=== PATIENT | female | born 1980 | race Two or more races ===

== ENCOUNTER 2024-10-16 15:27 | Emergency (ER) | payer MEDICAID, SELFPAY ==
--- NOTE | ~2024-10-16 | XR_ITS ---
CLINICAL HISTORY: ?FB to 3rd finger from fish paulette 3 view right hand Comparison: None Findings: Bones intact. No dislocations. No significant loss of joint space or osteophytes. 2 mm linear foreign body within the soft tissues overlying the distal right 3rd phalanx. IMPRESSION: 2 mm linear foreign body within the soft tissues overlying the distal right 3rd phalanx. This document has been electronically signed by: Terrence Parish MD on 10/16/2024 16:26:07
--- NOTE | 2024-10-16 15:33 | ED.UPPEXIN ---
HPI - Extremity Injury (Upper) General Chief Complaint: General Medical Stated Complaint: right wrist Time Seen by Provider: 10/16/24 17:02 Related Data Previous Rx's ?Medication ?Instructions ?Recorded cefuroxime axetil 500 mg tablet 500 mg PO BID #20 tabs 10/16/24 doxycycline monohydrate 100 mg 100 mg PO BID #20 caps 10/16/24 capsule Allergies Allergy/AdvReac Type Severity Reaction Status Date / Time No Known Allergies Allergy Verified 10/16/24 15:36 Review of Systems Review of Systems: Yes all other systems are reviewed and are negative [facility] Social History Social History Smoked in Last 30 Days: No Use of substances other than those prescribed or required for medical reasons: No Advance Directives: No Advance Directives Information Provided: No Do you have a plan to hurt others: No Plan Patient : No Physical Exam Vital Signs: Vital Signs: Last Vital Signs Temp 98.9 F 10/16/24 18:03 Pulse 70 10/16/24 18:03 Resp 18 10/16/24 18:03 BP 140/80 H 10/16/24 18:03 Pulse Ox 97 10/16/24 18:03 O2 Del Method Room Air 10/16/24 18:03 BMI result Body Mass Index 34.8 Const: Other: The patient is a 44-year-old woman who was awake and alert. She looks somewhat tired but not toxic. HEENT: Other: Face is symmetrical, mucous membranes moist Eyes: General: appearance normal, both eyes and all related structures Neck: Neck: Yes normal visual inspection, Yes full ROM and Yes no lymphadenopathy Resp: Effort & Inspection: normal respiratory effort Auscultation: clear to auscultation bilaterally Cardio: Other: I heard no murmur Palpation: normal PMI Rate: regular rate Rhythm: regular rhythm and abnormal rhythm Skin: Other: There is a small area of skin abnormality on the radial side of the distal right middle finger which I suspect was the entrance wound of the fish hook. There is no erythema associated with this however. There is no swelling to the skin of the pad of the finger. The remainder of the skin of the middle finger in the rest of the hand and the wrist is all unremarkable without erythema or swelling. Neuro: Other: The patient is awake and alert with a normal mental status. Normal sensorimotor function of the right hand. Extrem: Other: The patient indicates that she has pain in the region of the right wrist mostly on the radial side of the right wrist and at the base of the thumb. I can put the wrist through an excellent range of motion without difficulty. I can also manipulate the thumb easily without causing any pain. There is a sign of what I suspect was the entrance wound of a fishhook injury on the radial side of the distal right middle finger. This is on the side of the pad of the finger. The pad itself does not seem swollen or tender. There is no tenderness at the site of the wound. There was no purulence. No erythema. There was no tenderness along the course of the flexor tendon. There was no pain with passive extension of the finger. She is able to curl the finger well. Course Course Course Narrative: Art Estelita ACCOUNT DEVELOPMENT REPRESENTATIVE 10/16 1529 This is a rapid medical exam. Deferred additional HPI, ROS, PE to primary provider. 44 yo female with no known medical history, right hand dominant here with pain/redness/swelling to right hand 3rd finger x 2 weeks, getting progressively worsened. Of note, she was fishing 2 weeks ago and thinks a paulette from the fish went into her finger. She does have a small wound on the distal finger with surrounding erythema. Will check x-rays VSS Medications Administered Discontinued Medications Generic Name Dose Route Start Last Admin Trade Name Mirna PRN Reason Stop Dose Admin Cefuroxime Axetil 500 mg 10/16/24 17:38 10/16/24 17:56 Cefuroxime Axetil 500 Mg Tablet PO 10/16/24 17:39 500 mg ONCE ONE Administration Diphtheria/Tetanus/Acell Pertussis 0.5 ml 10/16/24 17:36 10/16/24 17:57 Diphth,Pertus(Acell),Tet Adult 0.5 Ml Syringe IM 10/16/24 17:37 0.5 ml .ONCE ONE Administration Doxycycline Monohydrate 100 mg 10/16/24 17:36 10/16/24 17:56 Doxycycline Monohydrate 100 Mg Capsule PO 10/16/24 17:37 100 mg ONCE ONE Administration Medical Decision Making Medical Decision Making MDM Narrative: The patient is a 44-year-old woman who sustained an injury to the distal right middle finger 2 weeks ago, a fishhook injury. She thought that she had successfully removed the fishhook. She now has pain in the region of the base of the hand and the right wrist. An x-ray of the hand shows what may be a very small foreign body near the entrance wound at the pad of the finger. She is afebrile and does not tachycardic. I do not find any evidence of any acute surgical infectious process in the finger, the hand, or the wrist. Her physical exam is quite benign. I can not really explain why she is having pain in the hand and wrist. It is also surprising that she does not have much pain at the pad of the finger where she has the foreign body. I reviewed the case with the provider on-call for Orthopedics. The patient will be placed on antibiotics and follow up in the office for outpatient management. The patient was given a tetanus shot. The patient was started on cefuroxime 500 mg b.i.d. and doxycycline 100 mg b.i.d.. She should return to the emergency room if you feel significantly worse. Discharge Plan Discharge Clinical Impression: Foreign body of finger of right hand Patient Disposition: Home, Self-Care Additional Instructions: You have a small piece of what I believe is a remnant of the fish hook in the tip of your right middle finger. You has been started on a course of antibiotics. Please take these antibiotics 2 times a day as prescribed. Please call the orthopedic office on Friday to make an appointment for arranging a possible procedure to remove the foreign body in your fingertip. Otherwise rest and take it easy. If you feel significantly worse return to the Emergency Room. Prescriptions: New doxycycline monohydrate 100 mg capsule 100 mg PO BID Qty: 20 0RF cefuroxime axetil 500 mg tablet 500 mg PO BID Qty: 20 0RF Referrals: [facility] [Provider Group] (Right middle finger foreign body, fish hook remnant) Interventions: ED Discharge Assessment Last Done: 10/16/24 18:03 Discharge Date/Time: 10/16/24 18:04 Print Language: Bruneian
[2024-10-16 15:34] VITALS: BP 133/71; PULSE 68; RESP 18; TEMP 37.2; O2SAT 98; BMI 34.8
--- OUTSIDE RECORDS SUMMARY | 2024-10-16 17:01 | XMS_ITS | Clinical Summary ---
Author Organization [facility] Address [address] [place] [address] Care Team Providers Care Batter Scaler Name Role Phone Maryuri Victoria NAIN Primary Care Provider [phone] Source Comments PLEASE NOTE, if this patient is a minor, it may be UNLAWFUL to discuss sensitive information that is contained in these records (such as FAMILY PLANNING, MENTAL HEALTH or SUBSTANCE ABUSE) with the minor patient's parent or other person without the patient's specific authorization.[facility] Allergies No known active allergies Medications lancets (FREESTYLE LANCETS) 28 gaugeIndication s:Type 2 diabetes mellitus without complication, without long-term current use of insulin ([facility]) Check FBS once daily E11.8 100 Each 11 2 Active alcohol swabs (ALCOHOL PREP PADS)Indication s:Type 2 diabetes mellitus without complication, without long-term current use of insulin ([facility]) Check FBS BID and inject Trulicity weekly. 100 Each 11 2 Active blood sugar diagnostic (FREESTYLE LITE STRIPS) stripsIndicatio ns:Type 2 diabetes mellitus without complication, without long-term current use of insulin ([facility]) CHECK FASTING BLOOD SUGAR ONCE DAILY 100 Each 3 4 Active cholecalciferol (VITAMIN D-3) 50 mcg (2,000 unit) capsuleIndicati ons:Vitamin D deficiency Take 1 Capsule by mouth once daily 90 Capsule 3 4 Active tirzepatide (MOUNJARO) 2.5 mg/0.5 mL pnijIndications :Type 2 diabetes mellitus without complication, without long-term current use of insulin ([facility]) Inject 2.5 mg into the skin once a week 2 mL 5 Active metFORMIN (GLUCOPHAGE) 1,000 mg tabletIndicatio ns:Type 2 diabetes mellitus without complication, without long-term current use of insulin ([facility]) TAKE 1 TABLET BY MOUTH TWICE A DAY WITH A MEAL 180 Tablet 1 5 Active simvastatin (ZOCOR) 10 mg tabletIndicatio ns:Type 2 diabetes mellitus without complication, without long-term current use of insulin ([facility]) TAKE 1 TABLET BY MOUTH EVERYDAY AT BEDTIME 90 Tablet 1 5 Active tirzepatide (MOUNJARO) 5 mg/0.5 mL pnijIndications :Type 2 diabetes mellitus without complication, without long-term current use of insulin ([facility]) Inject 5 mg into the skin once a week 6 mL 1 5 Active famotidine (PEPCID) 20 mg tabletIndicatio ns:Gastroesopha geal reflux disease without esophagitis Take 1 Tablet by mouth once daily as needed for heartburn 90 Tablet 5 Active empagliflozin (JARDIANCE) 10 mg tabIndications: Type 2 diabetes mellitus without complication, without long-term current use of insulin ([facility]) Take 1 Tablet by mouth once daily 30 Tablet 2 5 Active empagliflozin (JARDIANCE) 10 mg tabIndications: Type 2 diabetes mellitus without complication, without long-term current use of insulin ([facility]) Take 1 Tablet by mouth every morning 90 Tablet 1 5 10/02/19 25 Discontinu ed(Cancell ed) Hospital, Clinic, or Other Facility Administered Medication Ordered Dose Route Frequency Start Date End Date Status Nexplanon 68 mg implant (etonogestreL)Indications :Encounter for removal and reinsertion of etonogestrel implant 68 mg sdrm EVERY 3 YEARS 03/15/2020 A ctive Active Problems Problem Noted Date Diagnosed Date Complex renal cyst 06/17/2023 Overview (06/17/2023): Noted on liver u/s. H/O mammogram 08/13/2021 Overview (09/29/2024): 09/27/24 Mammogram: BI-RADS CATEGORY 1 - NEGATIVE 05/23/23 Mammo BIRADS 13/02/21 Mammo BIRADS 2 Breakthrough bleeding on Nexplanon 04/18/2021 H/O complete eye exam 09/13/2017 Overview (09/16/2024): Eye exam 08/27/17 at [facility]. No DR. Eye exam 09/01/18 at [facility]. No DR. 06/06/20 Eye exam at [facility]. No DR 06/07/21 Eye exam at [facility]. No DR. 06/10/22 Eye Exam at [facility]. No DR. 06/16/23 Eye Exam at [facility]. No DR> 09/15/24 Eye & Lasik: Negligible cataracts in both eyes but no signs of retinopathy. RTC in 1 year GERD (gastroesophageal reflux disease) 6 Low back pain 09/20/2014 Acne 07/30/2013 Type 2 diabetes mellitus without complication ([facility]) 09/11/2011 Overview (03/14/2020): 09/10/2011 A1C =7.6% The 10-year ASCVD risk score (Maverick CARLENE Jr., et al., 2013) is: 0.6% Hepatic steatosis 09/10/2011 Erythrocytosis 09/10/2011 Overview (12/10/2012): 09/10/2011 RBC = 5.6 10/21/2012 RBC = 5.2 H/O tubal ligation (unsuccessful) 09/09/2011 Overview (12/10/2012): 2008 unsuccessful positive [address] 11/15/2010 Overview (10/02/2020): Inserted 03/15/20 Vitamin D deficiency 02/18/2008 Overview (12/10/2012): = 20 02/18/08 = 16 09/10/11 Class 2 severe obesity due t o excess calories with serious comorbidity and body mass index (BMI) of 36.0 to 36.9 in adult ([facility]) Overview (12/10/2012): BMI = 36.9 09/09/2011 Resolved Problems Problem Noted Date Diagnosed Date Resolved Date Dizziness 05/17/2019 10/02/2020 Viral wart on right thumb 09/09/2011 Encounters Date Type Department Care Team Description 09/03/2024 1:40 PM EDT Office Visit [address] [phone] Maryuri Victoria NP Type 2 diabetes mellitus without complication, without long-term current use of insulin ([facility]) (Primary Dx); Gastroesophageal reflux disease without esophagitis 09/02/2024 Results Follow-Up [address] [phone] Maryuri Victoria NP 08/30/2024 1:40 PM EDT Office Visit [address] [phone] Maryuri Victoria NP Routine adult health maintenance (Primary Dx); Encounter for screening mammogram for malignant neoplasm of breast; Type 2 diabetes mellitus without complication, without long-term current use of insulin ([facility]); Class 2 severe obesity due to excess calories with serious comorbidity and body mass index (BMI) of 36.0 to 36.9 in adult ([facility]); Gastroesophageal reflux disease without esophagitis; Nexplanon in place; Midline low back pain without sciatica, unspecified chronicity; Vitamin D deficiency; Hepatic steatosis; H/O complete eye exam; H/O mammogram; Complex renal cyst; Elevated red blood cell count from Last 3 Months Immunizations Immunization Administration Dates Next Due Flu, Preservative Free 05/12/2023,2020,02/21/2020,05/17,03/03/2018,02/20/2016,05/16/2015 Hep A, adult 03/18/2008 Hep B, Adult/Adol (ENERGIX/RECOMBIVAX) 8,11/04/2017,05/04/2007 INFLUENZA, SEASONAL, INJECTABLE 05/11/2013,04/17,03/18/2008 Influenza (FLUBLOK),recombinant,injectable,prese rvative Free 06/04/2024 MMR (MMR II/Priorix) 04/17/2012,05/04/2007 MODERNA COVID-19 VACCINE BIV ALENT, BLUE CAP, 6M+ 07/20/2022 Moderna COVID-19 (Spikevax), Mrna, Lnp-s, Pf, 50 Mcg/0.5 Ml, 12yr+ 06/04/2024 Moderna COVID-19 Vaccine, re d cap blue label, 12+ Primary Series 09/16/2020,08/19/2020 PFIZER COVID VACCINE, PURPLE CAP, 12+ 04/18/2021 PNEUMOCOCCAL CONJUGATE PCV 2 0 (Prevnar) 05/12/2023 PNEUMOCOCCAL POLYSACCHARIDE PPV23 (Pneumovax 23) 03/03/2018 PPD 01/16/2008 TDAP 01/19/2018,11/04/2017 Td(adult),2 Lf tetanus toxoid,preservative free 02/18/2008,05/04/2007 Family History Medical History Relation Name Comments No Known Problems Brother 1 No Known Problems Brother 2 No Known Problems Brother 3 No Known Problems Daughter 1 No Known Problems Daughter 2 Other (See Comments) Father Torture d before Asthma Mother Cancer Paternal Grandfather Lung ca ncer No Known Problems Sister 1 No Known Problems Sister 2 No Known Problems Sister 3 No Known Problems Son 1 No Known Problems Son 2 No Known Problems Son 3 Colon Cancer Neg Diabetes Neg Relation Name Status Comments Brother 1 Alive Brother 2 Alive Brother 3 Alive Daughter 1 Alive Daughter 2 Alive Father Mother Alive Paternal Grandfather Sister 1 Alive Sister 2 Alive Sister 3 Alive Son 1 Alive Son 2 Alive Son 3 Alive Social History Tobacco Use Types Packs/Day Years Used Date Smoking Tobacco: Never Smokeless Tobacco: Never Tobacco Cessation:Counseling Given: Not Answered Alcohol Use Standard Drinks/Week Comments No 0 (1 standard drink = 0.6 oz pur e alcohol) Social Connections Answer Date Recorded Connectedness 0 08/04/2020 Financial Resource Strain Answer Date R ecorded Financial Resource Strain 0 2020 Stress Answer Date Recorded Stress 0 08/04/2020 Physical Activity Answer Date Recorded Physical Activity 0 08/04/2020 Food Insecurity Answer Date Recorded Food 0 08/04/2020 Transportation Needs Answer Date Record ed Transportation 0 08/04/2020 Housing Stability Answer Date Recorded Housing 0 08/04/2020 Safety and Environment Answer Date Abebe rded Safety 1 06/04/2024 Utilities Answer Date Recorded Utilities 0 08/04/2020 Employment Answer Date Recorded Stress 0 08/04/2020 Comments No Sex and Gender Information Value Date Recorded Sex Assigned at Female 10/29/2017 7:23 AM PDT Legal Sex Female 11:36 AM PDT Gender Identity Female 10/29/2017 7:23 AM PDT Sexual Orientation Straight 11/04/2017 7: 10 AM PDT Last Filed Vital Signs Vital Sign Reading Time Taken Comments Blood Pressure 120/82 09/03/2024 1:34 PM EDT Pulse 90 09/03/2024 1:34 PM EDT Temperature 37 ??C (98.6 ??F) 09/03/2024 1:34 PM EDT Respiratory Rate 16 09/03/2024 1:34 PM EDT Oxygen Saturation 99% 09/03/2024 1:34 PM EDT Inhaled Oxygen Concentration - - Weight 89.4 kg (197 lb 3.2 oz) 09/03/2024 1:34 P M EDT Height 157.5 cm (5' 2 ) 09/03/2024 1:34 PM EDT Body Mass Index 36.07 09/03/2024 1:34 PM EDT Plan of Treatment Health Maintenance Due Date Last Done Comments Anxiety Screening 1980 HPV Screening 1980 Dental Prophy 12/01/2022 05/31/2022 CT Colonography 2023 FIT/gFOBT 2023 Fecal DNA 2023 Flexible Sigmoidoscopy 2023 Dental BW 05/15/2023 05/13/2022 Dental Examination 05/15/2023 05/13/2022 Dental Perio Charting 05/15/2023 05/13/2022 Pap Smear 10/03/2023 10/02/2020, 05/02, 11/20/2011 Diabetes HbA1c 09/02/2024 06/04/2024, 08/0 07/2023, 05/12/2023, Additional history exists Urine Albumin Creatinine Ratio Screening 01/01/2025 01/02/2024, 05/12/2023, 07/16/2021, Additional history exists LARC-Nexplanon implant 03/15/2025 03/15/2020 Postp oned from 03/15/2023 (Not appropriate at this time) Relationship Safety Screening/Counseling 06/04/2025 06/04/2024, 05/12/2023, 10/17/2021, Additional history exists Annual Preventive Care Visit 08/30/2025 08/30/2024, 05/12/2023, 11/04/2017, Additional history exists Lipid Screening 08/30/2025 08/30/2024, 07/2023, 05/12/2023, Additional history exists Serum Creatinine 08/30/2025 08/30/2024, 07/2023, 05/12/2023, Additional history exists Tobacco Screening 08/30/2025 08/30/2024 Diabetes Foot Exam 09/03/2025 09/03/2024, 0 09/03/2024, 08/30/2024, Additional history exists Hypertension Screening (#1) 09/03/2025 Retinopathy Screening 09/15/2025 09/15/2024 , 06/21/2024, 06/16/2023, Additional history exists Breast Cancer Screening (Mammogram) 09/25/2025 09/25/2024, 05/23/2023, 01/03/2022, Additional history exists Cervical Cancer Screening 10/02/2025 Pap + HPV 10/02/2025 10/02/2020 Colonoscopy 01/19/2027 01/20/2024 Colorectal Cancer Screening 01/19/2027 Dental FMX/Pano 05/15/2027 05/13/2022 Imm-DTaP/Tdap/Td (3 - Td or Tdap) 01/20/2028 01/19/2018, 11/04/2017, 02/18/2008, Additional history exists Imm-Hepatitis B Discontinued 03/03/2018, 060 09/2017, 05/04/2007 Imm-Pneumococcal Completed 05/12/2023, 03/03/2018 Alcohol and Drug Screen Completed 06/04/19, 01/02/2024, 05/12/2023, Additional history exists Depression Annual Screen Completed 06/04/2024, 06/0 09/2017 [id number] Completed 06/04/2024, 07/03, 04/18/2021, Additional history exists Imm-Influenza Completed 06/04/2024, 05/02, 04/18/2021, Additional history exists HIV Screening Completed 08/30/2024, 05/17/2019 Hepatitis C Screening Completed 08/30/2024, 019 Cervical Ablation/Cold-Knife Conization Discontinued Cervical Cryotherapy Discontinued Colposcopy Discontinued Endometrial Biopsy Discontinued Excision/Leep Discontinued HPV Genotyping Discontinued Vaginal Pap Discontinued Vulvoscopy Discontinued Goals Goal Patient Goal Type Associated Problems Recent Progress Patient-Stated? Author To saty more physically active. Case Management No Franklyn Hubbard, RN Note: What: Start stretch and restore physical activity class. How Much: minimum of 30 minutes When: Mondays How Often: Once a week [facility] With whom: Daughter Start Date:05/31/2019 Follow-Up Date: 06/25/[address] to Follow-Up: in person Procedures Procedure Name Priority Date/Time Associated Diagnosis Comments REFERRAL FOR MAMMOGRAM Routine 09/25/2024 3:00 AM EDT Encounter for screening mammogram for malignant neoplasm of breast REFERRAL TO DIABETIC RETINAL EXAM Routine 09/15/2024 3:00 AM EDT Type 2 diabetes mellitus without complication, without long-term current use of insulin ([facility]) VITAMIN B12 & FOLATE Routine 08/30/2024 2:25 PM EDT Routine adult health maintenance Type 2 diabetes mellitus without complication, without long-term current use of insulin ([facility]) VITAMIN D, 1,25-DIHYDROXY Routine 08/30/2024 2:25 PM EDT Vitamin D deficiency TSH W/RFLX FREE T4 Routine 08/30/2024 2: 25 PM EDT Routine adult health maintenance LIPID PANEL Routine 08/30/2024 2:25 PM EDT Routine adult health maintenance HEPATITIS C AB W/RFLX HCV RNA, QT, RT PCR Routine 08/30/2024 2:25 PM EDT Routine adult health maintenance HIV 1/2 AG & AB W/RFLX (4TH GEN) Routine 08/30/2024 2:25 PM EDT Routine adult health maintenance COMPREHENSIVE METABOLIC PANEL Routine 08/30/2024 2:25 PM EDT Routine adult health maintenance BLOOD COUNT COMPLETE AUTO&AUTO DIFRNTL WBC Routine 08/30/2024 2:25 PM EDT Routine adult health maintenance HEMOGLOBIN GLYCOSYLATED A1C Routine 06/04/2024 12:10 PM EST Type 2 diabetes mellitus without complication, without long-term current use of insulin ([facility]) REFERRAL FOR COLONOSCOPY Routine 01/20/2024 3:00 AM EDT Screening for colon cancer MICROALBUMIN/CREATINI NE RATIO, URINE, RANDOM Routine 01/02/2024 10:17 AM EDT Type 2 diabetes mellitus without complication, without long-term current use of insulin ([facility]) Class 2 severe obesity due to excess calories with serious comorbidity and body mass index (BMI) of 36.0 to 36.9 in adult ([facility]) Vitamin D deficiency Subclinical hypothyroidism Full PROPHYLAXIS - ADULT Routine 05/31/2022 1:40 PM EST Gingivitis, chronic, plaque induced Full INTRAORAL - COMP SERIES OF RADIOGRAPHIC IMAGES Routine 05/13/2022 3:00 PM EST Gingivitis, chronic, plaque induced Full COMP ORAL EVALUATION - NEW/ESTABLISHED PATIENT Routine 05/13/2022 3:00 PM EST Gingivitis, chronic, plaque induced THIN PREP PAP + HPV RNA E6/E7 (Q) Routine 10/02/2020 1:18 PM EDT Screening for cervical cancer from Last 3 Months or Most Recently Relevant to Health Maintenance Results * REFERRAL FOR MAMMOGRAM (09/25/2024 3:00 AM EDT) 09/25/2024 3:00 AM EDT Maryuri Victoria NP IMG RFL MAMMO Final Result * REFERRAL TO DIABETIC RETINAL EXAM (09/15/2024 3:00 AM EDT) 09/15/2024 3:00 AM EDT us Maryuri Victoria NP REFERRAL Final Result * HEPATITIS C AB W/RFLX HCV RNA, QT, RT PCR (08/30/2024 2:25 PM EDT) HEPATITIS C ANTIBODY NON-REACT BARRERA NON-REACT BARRERA [employer] [facility] Comment: HCV antibody was non-reactive. There is no laboratory evidence of HCV infection. In most cases, no further action is required. However, if recent HCV exposure is suspected, a test for HCV RNA (test code 77457) is suggested. For additional information please refer to http://education.shoutr/faq/TCI93y5 (This link is being provided for informational/ educational purposes only.) Blood Blood / Unknown 08/30/2024 2 :25 PM EDT 08/30/2024 2:26 PM EDT Narrative [employer] [facility] - 09/04/2024 2:14 PM EDT FASTING:NO Maryuri Victoria NP LAB - BLOOD DRAW Edited Result - Final [employer] [address] [place] [id number], [employer] [address] [address] * HIV 1/2 AG & AB W/RFLX (4TH GEN) (08/30/2024 2:25 PM EDT) HIV AG/AB, 4TH GEN NON-REAC TIVE NON-REAC TIVE [employer] [facility] Comment: HIV-1 antigen and HIV-1/HIV-2 antibodies were not detected. There is no laboratory evidence of HIV infection. PLEASE NOTE: This information has been disclosed to you from records whose confidentiality may be protected by state law. ??If your state requires such protection, then the state law prohibits you from making any further disclosure of the information without the specific written consent of the person to whom it pertains, or as otherwise permitted by law. A general authorization for the release of medical or other information is NOT sufficient for this purpose. ?? For additional information please refer to http://education.shoutr/faq/JBM474 (This link is being provided for informational/ educational purposes only.) The performance of this assay has not been clinically validated in patients less than 2 years old. Blood Blood / Unknown 08/30/2024 2 :25 PM EDT 08/30/2024 2:26 PM EDT Narrative [employer] [facility] - 09/04/2024 2:14 PM EDT FASTING:NO Maryuri Victoria [employer] LAB - BLOOD DRAW Final Result Performing Organization Address [facility] de Phone Number [employer] [address] [address], [employer] [address] [address] * TSH W/RFLX FREE T4 (08/30/2024 2:25 PM EDT) TSH W/REFLEX TO FT4 3.05 0.40 - 4.50 mIU/L [employer] [facility] Comment: ?Reference Range ?> or = 20 Years ??0.40-4.50 ? Ranges ?First trimester ?0.26-2.66 ?Second trimester ?? 0.55-2.73 ?Third trimester ?0.43-2.91 Blood Blood / Unknown 08/30/2024 2 :25 PM EDT 08/30/2024 2:26 PM EDT Narrative [employer] [facility] - 09/04/2024 2:14 PM EDT FASTING:NO Maryuri Victoria [employer] LAB - BLOOD DRAW Edited Result - Final [facility] [address] [address], [employer] [facility] [address] [place] [address] * (ABNORMAL) VITAMIN D, 1,25-DIHYDROXY (08/30/2024 2:25 PM EDT) Pathologist [facility] VITAMIN D, 1, 25 (OH)2, TOTAL 76(H) 18 - 72 pg/mL [employer] VITAMIN D3, 1, 25 (OH)2 76 pg/mL [employer] VITAMIN D2, 1, 25 (OH)2 <8 pg/mL [employer] Comment: Vitamin D3, 1,25(OH)2 indicates both endogenous production and supplementation. Vitamin D2, 1,25(OH)2 is an indicator of exogenous sources, such as diet or supplementation. ??Interpretation and therapy are based on measurement of Vitamin D,1,25(OH)2, Total. This test was developed and its analytical performance characteristics have been determined by [place] It has not been cleared or approved by the FDA. This assay has been validated pursuant to the CLIA regulations and is used for clinical purposes. Blood Blood / Unknown 08/30/2024 2 :25 PM EDT 08/30/2024 2:26 PM EDT Narrative [employer] [place] - 09/04/2024 2:14 PM EDT FASTING:NO Maryuri Victoria [employer] LAB - BLOOD DRAW Final Result [employer] [id number] [place], [place] , [employer] [facility] [address] [place], [place] * VITAMIN B12 & FOLATE (08/30/2024 2:25 PM EDT) Pathologist [facility] VITAMIN B12 571 200 - 1,100 pg/mL [employer] [facility] FOLATE, SERUM 12.9 5.5 ng/mL [employer] [facility] Comment: ? Reference Range ? Low: ? <3.4 ? Borderline: ?3.4-5.4 ? Normal: ?>5.4 Blood Blood / Unknown 08/30/2024 2 :25 PM EDT 08/30/2024 2:26 PM EDT Narrative [employer] - 09/04/2024 2:14 PM EDT FASTING:NO Maryuri Victoria NP LAB - BLOOD DRAW Edited Result - Final Performing Organization Address City/State/[facility] Co de Phone Number [employer] [address] [address], [employer] [address] [place] [address] * (ABNORMAL) BLOOD COUNT COMPLETE AUTO&AUTO DIFRNTL WBC (08/30/2024 2:25 PM EDT) WHITE BLOOD CELL COUNT 8.6 3.8 - 10.8 Thousand/ uL [employer] RED BLOOD CELL COUNT 5.65(H) 3.80 - 5.10 Million/u L [employer] HEMOGLOBIN 14.9 11.7 - 15.5 g/dL [employer] HEMATOCRIT 47.2(H) 35.0 - 45.0 % [employer] MCV 83.5 80.0 - 100.0 fL [employer] MCH 26.4(L) 27.0 - 33.0 pg [employer] MCHC 31.6(L) 32.0 - 36.0 g/dL [employer] Comment: For adults, a slight decrease in the calculated MCHC value (in the range of 30 to 32 g/dL) is most likely not clinically significant; however, it should be interpreted with caution in correlation with other red cell parameters and the patient's clinical condition. RDW 12.5 11.0 - 15.0 % [employer] PLATELET COUNT 383 140 - 400 Thousand/ uL [employer] MPV 10.0 7.5 - 12.5 fL [employer] ABSOLUTE NEUTROPHILS 5,513 1,500 - 7,800 cells/uL [employer] ABSOLUTE LYMPHOCYTES 2,382 850 - 3,900 cells/uL [employer] ABSOLUTE MONOCYTES 413 200 - 950 cells/uL [employer] ABSOLUTE EOSINOPHILS 172 15 - 500 cells/uL [employer] ABSOLUTE BASOPHILS 120 0 - 200 cells/uL [employer] NEUTROPHILS PCT 64.1 % [employer] LYMPHOCYTES 27.7 % [facility] [employer] MONOCYTES 4.8 % [facility] [employer] [facility] EOSINOPHILS 2.0 % [facility] [employer] BASOPHILS 1.4 % [employer] Blood Blood / Unknown 08/30/2024 2 :25 PM EDT 08/30/2024 2:26 PM EDT Narrative [employer] - 09/04/2024 2:14 PM EDT FASTING:NO Maryuri Victoria [employer] LAB - BLOOD DRAW Edited Result - Final [employer] [address] [address], [employer] [address] [place] [address] * (ABNORMAL) LIPID PANEL (08/30/2024 2:25 PM EDT) [facility] Signature CHOLESTEROL, TOTAL 204(H) <200 mg/dL [employer] [facility] HDL CHOLESTEROL 70 > OR = 50 mg/dL [employer] TRIGLYCERIDES 118 <150 mg/dL [employer] LDL-CHOLESTEROL 111(H) 99 mg/dL (calc) [employer] Comment: Reference range: <100 Desirable range <100 mg/dL for primary prevention; ?? <70 mg/dL for patients with CHD or diabetic patients with > or = 2 CHD risk factors. LDL-C is now calculated using the Martin calculation, which is a validated novel method providing better accuracy than the Friedewald equation in the estimation of LDL-C. Darryl SS et al. AMRCIAL. 2013;310(19): 7052-9657 (http://education.[employer].Totango/faq/HBV059) CHOL/HDLC RATIO 2.9 <5.0 (calc) [employer] NON-HDL CHOLESTEROL 134(H) <130 mg/dL (calc) [employer] Comment: For patients with diabetes plus 1 major ASCVD risk factor, treating to a non-HDL-C goal of <100 mg/dL (LDL-C of <70 mg/dL) is considered a therapeutic option. Blood Blood / Unknown 08/30/2024 2 :25 PM EDT 08/30/2024 2:26 PM EDT Narrative [employer] [facility] - 09/04/2024 2:14 PM EDT FASTING:NO Maryuri Victoria NP LAB - BLOOD DRAW Final Result [employer] [address] [address], [employer] [address] [address] * (ABNORMAL) COMPREHENSIVE METABOLIC PANEL (08/30/2024 2:25 PM EDT) Pathologist [facility] GLUCOSE 122 65 - 139 mg/dL [employer] [facility] Comment: ?Non-fasting reference interval UREA NITROGEN (BUN) 14 7 - 25 mg/dL [employer] [facility] CREATININE (blood) 0.49(L) 0.50 - 0.99 mg/dL [employer] [facility] EGFR 118 > OR = 60 mL/min/1. 73m2 [employer] [facility] BUN/CREATININE RATIO 29(H) 6 - 22 (calc) [employer] [facility] SODIUM 135 135 - 146 mmol/L [employer] [place] [employer] POTASSIUM 4.2 3.5 - 5.3 mmol/L [employer] CHLORIDE 99 98 - 110 mmol/L [employer] [place] [employer] CARBON DIOXIDE 28 20 - 32 mmol/L [employer] [place] [employer] CALCIUM 10.2 8.6 - 10.2 mg/dL [employer] PROTEIN, TOTAL 8.0 6.1 - 8.1 g/dL [employer] [facility] ALBUMIN 4.6 3.6 - 5.1 g/dL [employer] [facility] GLOBULIN 3.4 1.9 - 3.7 g/dL (calc) [employer] ALBUMIN/GLOBULI N RATIO 1.4 1.0 - 2.5 (calc) [employer] [facility] BILIRUBIN, TOTAL 0.7 0.2 - 1.2 mg/dL [employer] [facility] ALKALINE PHOSPHATASE 43 31 - 125 U/L [facility] AST 18 10 - 35 U/L [facility] ALT 22 6 - 29 U/L [facility] Blood Blood / Unknown 08/30/2024 2 :25 PM EDT 08/30/2024 2:26 PM EDT Narrative [facility] [employer] - 09/04/2024 2:14 PM EDT FASTING:NO us Maryuri Victoria NP LAB - BLOOD DRAW Edited Result - Final Performing Organization Address [facility] de Phone Number [facility] [address] [address], [facility] [address] [phone] * (ABNORMAL) HEMOGLOBIN GLYCOSYLATED A1C (06/04/2024 12:10 PM EST) HEMOGLOBIN A1C 7.2(H) <5.7 % of total Hgb [facility] Comment: For someone without known diabetes, a hemoglobin A1c value of 6.5% or greater indicates that they may have diabetes and this should be confirmed with a follow-up test. For someone with known diabetes, a value <7% indicates that their diabetes is well controlled and a value greater than or equal to 7% indicates suboptimal control. A1c targets should be individualized based on duration of diabetes, age, comorbid conditions, and other considerations. Currently, no consensus exists regarding use of hemoglobin A1c for diagnosis of diabetes for children. ?? Blood Blood / Unknown 06/04/2024 1 2:10 PM EST 06/04/2024 12:11 PM EST Narrative [facility] - 06/05/2024 5:24 AM EST FASTING:NO us Maryuri Victoria NP LAB - BLOOD DRAW Final Result Performing Organization Address [facility]/ZIP Co de Phone Number [facility] [address] [address], [facility] [address] [place] [address] * REFERRAL FOR COLONOSCOPY (01/20/2024 3:00 AM EDT) 01/20/2024 3:00 AM EDT Bisi Christianson DESIGN ANALYST REFERRAL Edited Re sult - Final * MICROALBUMIN/CREATININE RATIO, URINE, RANDOM (01/02/2024 10:17 AM EDT) CREATININE, RANDOM URINE 147 20 - 275 mg/dL [employer] MICROALBUMIN 1.1 mg/dL [facility] Comment: Reference Range Not established MICROALBUMIN/CREA TININE RATIO, RANDOM URINE 7 <30 mg/g creat [employer] Comment: The ADA defines abnormalities in albumin excretion as follows: Albuminuria Category ?Result (mg/g creatinine) Normal to Mildly increased ?? <30 Moderately increased ? 30-299 Severely increased ? > OR = 300 The ADA recommends that at least two of three specimens collected within a 3-6 month period be abnormal before considering a patient to be within a diagnostic category. Urine Urine specimen / Unknown 01/02/2024 10:17 AM EDT 01/02/2024 10:18 AM EDT Narrative [facility] - 01/05/2024 12:35 PM EDT FASTING:YES Ximenajennifer Powell [facility] LAB - NO BLOOD DRAW Final Resu lt [facility] [address] [address], [facility] [address] [place] [phone] * THIN PREP PAP + HPV RNA E6/E7 (Q) (10/02/2020 1:18 PM EDT) Pathologist [facility] CLINICAL INFORMATION See Note [employer] Comment:Routine exam LMP See Note [employer] Comment:[id number] PREV. PAP [facility] PREV. BX See Note [facility] Comment:NONE GIVEN SOURCE See Note [employer] [facility] Comment:Cervix STATEMENT OF ADEQUACY See Note [facility] Comment: Satisfactory for evaluation. Endocervical/transformation zone component absent. INTERPRETATION/RESU LT See Note [facility] Comment:Negative for intraep ithelial lesion or malignancy. LEAD SALES CONSULTANT See Note [id number] Comment: HJP, CT(ASCP) CT screening location: [address] ??[id number] COMMENT [facility] HPV MRNA E6/E7 Not Detected Not Detected [facility] Comment: Methodology: Dynamiter-Mediated Amplification This assay detects E6/E7 viral messenger RNA (mRNA) from 14 high-risk HPV types (16,18,31,33,35,39,45,51,52,56,58,59,66,68). The analytical performance characteristics of this assay have been determined by [employer]. The modifications have not been cleared or approved by the FDA. This assay has been validated pursuant to the CLIA regulations and is used for clinical purposes. For additional information, please refer to http://education.shoutr/faq/POM741k8 (This link if provided for information/ educational purposes only.) CYTOLOGY Cervix uteri structure / Unknown 10/02/2020 1:18 PM EDT 10/03/2020 6:36 AM EDT Narrative [facility] - 10/04/2020 10:30 AM EDT EXPLANATORY NOTE: The Pap is a screening test for cervical cancer. It is not a diagnostic test and is subject to false negative and false positive results. It is most reliable when a satisfactory sample, regularly obtained, is submitted with relevant clinical findings and history, and when the Pap result is evaluated along with historic and current clinical information. [facility] LAB - NO BLOOD DRAW Final Result [facility] [address] [address], [facility] [address] [address] from Last 3 Months or Most Recently Relevant to Health Maintenance Insurance [employer] [address] [employer] Care Teams Batter Scaler Relationship Specialty Start Date End Date Maryuri Victoria NP [address] [place] [address] PCP - General Family Medicine, [employer] 04/19/24
[2024-10-16 17:03] VITALS: BP 140/80; PULSE 70; RESP 18; TEMP 37.2; O2SAT 97
[2024-10-16] MEDS: Doxycycline Monohydrate 100 MG CAPSULE PO (17:56)
[2024-10-16] MEDS: cefuroxime axetiL 500 MG TABLET PO (17:56)
[2024-10-16] MEDS: Diphth,Pertus(ACell),Tet Adult 0.5 ML SYRINGE IM (17:57)
[2024-10-16 18:03] VITALS: BP 140/80; PULSE 70; RESP 18; TEMP 37.2; O2SAT 97
== END 2024-10-16 18:04 | disposition home or self-care (01) ==
PROVIDERS: Emergency Provider Emergency Medicine
DX: M79.5 Residual foreign body in soft tissue (principal); M79.644 Pain in right finger(s); Z23 Encounter for immunization
CPT/HCPCS: 73120; 90471; 90715; 99284

== ENCOUNTER → 2024-10-16 15:37 | Outpatient (BNV) | payer OTHER, SELFPAY | PROVIDERS: Visit Provider Radiology Vascular & Interventional Radiology | DX: S60.452A Superficial foreign body of right middle finger, initial encounter (principal); W56.52XA Struck by other fish, initial encounter | CPT/HCPCS: 73120 ==